=== PATIENT | female | born 1995 | race Caucasian/White ===

== ENCOUNTER 2019-10-26 20:10 | Day surgery (SDC) | payer BC ==
[~2019-10-26] VITALS: Ht 144.8 cm; Wt 53.6 kg
[~2019-10-26 20:10] MED LIST: BACT800T5 PO; DICL500C PO; IBUP-1114 PO; IBUP80TA PO; MAPA500T2 PO; PRENTAB31 PO; VITAPRTA PO
[2019-10-26] MEDS ORDERED: NS 1,000 ML IV ONE (21:15)
[2019-10-26] MEDS ORDERED: ACETAMINOPHEN TAB 650MG DOSE (2X325MG) PO ONE (21:15)
[2019-10-26 21:26] LABS: BASO % 0.2 % (0.0-1.0); HEMATOCRIT 26.9 % (36.0-47.0); HEMOGLOBIN 8.6 g/dl (12.0-15.5); LYMPH # 0.6 10^3/uL (1.5-5.0); LYMPH % 7.8 % (24.0-44.0); MEAN CORPUSCULAR HEMOGLOBIN 27.2 pg (27.0-33.0); MEAN CORPUSCULAR VOLUME 85.1 fl (80.0-96.0); MONO # 0.4 10^3/uL (0.0-0.8); MONO % 4.6 % (0.0-5.0); NEUTROPHILS # 7.1 10^3/uL (1.5-8.5); PLATELET COUNT, AUTOMATED 201 10^3/uL (150-450); RED BLOOD COUNT 3.16 10^6/uL (4.00-5.40); WHITE BLOOD COUNT 8.2 10^3/uL (4.0-10.0)
[2019-10-26 21:32] LABS: ALBUMIN 2.9 GM/DL (3.2-5.2); ALT/SGPT 12 U/L (12-78); BILIRUBIN,DIRECT 0.1 MG/DL (0.0-0.2); BILIRUBIN,TOTAL 0.3 MG/DL (0.2-1.0); BLOOD UREA NITROGEN 6 MG/DL (7-18); CALCIUM LEVEL 8.2 MG/DL (8.5-10.1); CARBON DIOXIDE LEVEL 21 MEQ/L (21-32); CHLORIDE LEVEL 105 MEQ/L (98-107); CREATININE FOR GFR 0.69 MG/DL (0.55-1.30); GLOMERULAR FILTRATION RATE > 60.0 (>60); GLUCOSE, FASTING 98 MG/DL (70-100); LIPASE 90 U/L (73-393); POTASSIUM SERUM 3.6 MEQ/L (3.5-5.1); SODIUM LEVEL 136 MEQ/L (136-145); TOTAL PROTEIN 6.2 GM/DL (6.4-8.2)
--- NOTE | 2019-10-26 21:47 | REP ---
Clinical: Chest and abdominal pain . Comparison: None . Technique: PA and lateral. Findings: The mediastinum and cardiac silhouette are normal. The lung jones are clear and without acute consolidation, effusion, or pneumothorax. The skeletal structures are intact and normal. Impression: 1. No acute cardiopulmonary process. Electronically Signed by Baljit Springer MD 10/26/2019 09:39 P
[2019-10-26 22:04] LABS: INFLUENZA A AMPLIFICATION NEGATIVE (NEGATIVE); INFLUENZA B AMPLIFICATION NEGATIVE (NEGATIVE)
--- NOTE | 2019-10-26 22:36 | REPVR ---
PROCEDURE INFORMATION: Exam: US Pelvis Complete, Transabdominal and US Pelvis, Transvaginal and US Duplex Artery and Vein, Ovaries, Complete Exam date and time: 10/26/2019 10:03 PM Age: 24 years old Clinical indication: Menstruation abnormalities; Excessive menstruation; Other: Miscarriage; Pelvic pain; Additional info: Febrile, recent miscarriage, eval for rpoc TECHNIQUE: Imaging protocol: Real-time transabdominal and transvaginal pelvic ultrasound (complete) with image documentation. Transvaginal imaging was used for better evaluation of the endometrium and adnexa. Real-time duplex ultrasound scan of the arterial and venous flow of the ovaries with B-mode, color Doppler flow and spectral waveform analysis. COMPARISON: US PELVIC NON-OB COMPLETE 10/11/2016 6:34 PM FINDINGS: Uterus/cervix: The uterus measures 10.9 x 5.4 x 8.7 cm transabdominally and 10.1 x 5.6 x 7.9 cm transvaginally. It is homogeneous in echotexture, without demonstrated lesion. The endometrium measures up to 2.7 cm transabdominally and 3.5 cm transvaginally. It is heterogeneous and with internal vascularity. No discrete gestational sac was identified. Right adnexa: The right ovary measures 3.6 x 2.1 x 1.9 cm transabdominally and 2.8 x 2.0 x 2.1 cm transvaginally. It contains small follicles and demonstrates normal internal arterial and venous flow. Peak systolic velocity 15.8 cm/s, end-diastolic velocity 6.1 cm/s, resistive index 0.61. Left adnexa: The left ovary measures 2.7 x 3.3 x 2.2 cm transabdominally and 3.1 x 2.3 x 3.4 cm transvaginally. It contains a complex cyst measuring 2.0 x 1.6 x 1.8 cm and demonstrates normal internal arterial and venous flow. Peak systolic velocity 19.3 cm/s, end diastolic velocity 9.2 cm/s, resistive index 0.52. Free fluid: No significant free fluid is demonstrated, nor is any extraovarian adnexal mass. Bladder: The urinary bladder measures 3.2 x 2.8 x 7.4 cm. IMPRESSION: 1. Endometrium thickened up to 3.5 cm, heterogeneous and with internal vascularity, suspicious for retained products of conception. 2. 2.0 cm complex left ovarian cyst. 3. Unremarkable right ovary. 4. Normal internal flow to both ovaries, without torsion. Electronically signed by: Chandler Amezcua On 10/26/2019 22:36:12 PM
[2019-10-26] MEDS ORDERED: PIPERACILLIN/TAZOBACTAM SOD 3.375 GM in D5W MINI-BAG PLUS 50 ML IV ONE (23:00)
[2019-10-26] MEDS ORDERED: ACET-897 PO (23:29)
[2019-10-26] MEDS ORDERED: FERR1TAB8 PO (23:29)
[2019-10-26] MEDS ORDERED: VITA100066 PO (23:29)
[2019-10-26] MEDS ORDERED: IBUPOTC PO (23:29)
[2019-10-27] VITALS (11 sets, daily range): BP systolic 79–98; BP diastolic 42–58
[2019-10-27] MEDS ORDERED: DOXYCYCLINE HYCLATE 100 MG/10 ML VIAL As Ordered ONE (00:45)
[2019-10-27] MEDS ORDERED: MIDAZOLAM INJ 2 MG/2 ML VIAL (J2250) As Ordered ONE (01:17)
[2019-10-27] MEDS ORDERED: propofoL 200 MG/20 ML VIAL As Ordered ONE (01:17)
[2019-10-27] MEDS ORDERED: dexameTHASONE 4 MG/ML 1ML VIAL (J1100) As Ordered ONE (01:17)
[2019-10-27] MEDS ORDERED: fentaNYL 100 MCG/2 ML INJECTION (J3010) As Ordered ONE (01:17)
[2019-10-27] MEDS ORDERED: ONDANSETRON 4MG/2ML VIAL (J2405) As Ordered ONE (01:17)
[2019-10-27] MEDS ORDERED: LIDOCAINE 2% INJ 100 MG/5 ML SDV (FOR ANES.) As Ordered ONE (01:17)
[2019-10-27] MEDS ORDERED: KETOROLAC 60 MG/2 ML VIAL (J1885) As Ordered ONE (01:18)
[2019-10-27] MEDS ORDERED: METHYLERGONOVINE MALEATE 0.2 MG/ML VIAL (J2210) As Ordered ONE (01:26)
[2019-10-27] MEDS ORDERED: LR 1,000 ML IV SCH ×2 (01:30→02:15)
[2019-10-27] MEDS ORDERED: HYDROMORPHONE HCL 0.5 MG/ 0.5 ML SYRINGE (J1170 PER 1) IV PRN (01:30)
[2019-10-27] MEDS ORDERED: ONDANSETRON 4MG/2ML VIAL (J2405) IV PRN (01:30)
[2019-10-27] MEDS ORDERED: KETOROLAC 30 MG/ML VIAL (J1885) IV PRN (01:30)
[2019-10-27] MEDS ORDERED: fentaNYL 100 MCG/2 ML INJECTION (J3010) IV PRN (01:30)
[2019-10-27] MEDS ORDERED: PERCOCET 5MG/325MG TAB PO PRN ×2 (01:30→03:15)
[2019-10-27] MEDS ORDERED: DOXYCYCLINE HYCLATE 100 MG TAB PO ONE (02:15)
[2019-10-27 02:16] LABS: HEMATOCRIT 24.4 % (36.0-47.0); HEMOGLOBIN 7.5 g/dl (12.0-15.5); MEAN CORPUSCULAR HEMOGLOBIN 26.6 pg (27.0-33.0); MEAN CORPUSCULAR HGB CONC 30.7 g/dl (32.0-36.5); MEAN CORPUSCULAR VOLUME 86.5 fl (80.0-96.0); PLATELET COUNT, AUTOMATED 164 10^3/uL (150-450); RED BLOOD COUNT 2.82 10^6/uL (4.00-5.40); WHITE BLOOD COUNT 8.7 10^3/uL (4.0-10.0)
[2019-10-27] MEDS ORDERED: ONDANSETRON 4 MG TAB (S0181) PO PRN (03:15)
[2019-10-27] MEDS ORDERED: PROMETHAZINE INJ 25 MG/ML VIAL (J2550) IV PRN (03:15)
[2019-10-27 10:20] LABS: HEMATOCRIT 30.9 % (36.0-47.0); HEMOGLOBIN 10.2 g/dl (12.0-15.5); MEAN CORPUSCULAR HEMOGLOBIN 28.5 pg (27.0-33.0); MEAN CORPUSCULAR VOLUME 86.3 fl (80.0-96.0); PLATELET COUNT, AUTOMATED 178 10^3/uL (150-450); RED BLOOD COUNT 3.58 10^6/uL (4.00-5.40)
[2019-10-28] MEDS ORDERED: IBUPROFEN 800 MG TAB PO SCH (09:30)
== END 2019-10-27 11:55 | disposition home or self-care (01) ==
LOC: M ED 20:10 → M SDC 20:11 → M PED 10-27 02:30 → M SDC 10-27 11:55
PROVIDERS: ATTEND Obstetrics & Gynecology
DX: O03.4 Incomplete spontaneous abortion without complication (principal); O73.1 Retained portions of placenta and membranes, without hemorrhage; R00.0 Tachycardia, unspecified; R50.9 Fever, unspecified; Z79.899 Other long term (current) drug therapy
CPT/HCPCS: 36415; 36430; 59812; 71046; 76830; 76856; 80047; 80048; 80076; 81001; 83605; 83690; 85025; 85027; 86850; 86900; 86901; 86920; 87040; 87088; 87186; 87502; 88305; 93041; 93976; 96361; 96365; 99285; J1100; J1885; J2210; J2250; J2405; J2543; J3010; P9016

== ENCOUNTER → 2021-11-13 | Outpatient (REF) | payer OTHER, BC ==
[~2021-11-13] MED LIST changes: +ACET-897 PO; +FERR1TAB8 PO; +IBUPOTC PO; +VITA100066 PO
== END ==
LOC: M SFHCWAGY 13:09
PROVIDERS: ATTEND Obstetrics & Gynecology
DX: R87.610 Atypical squamous cells of undetermined significance on cytologic smear of cervix (ASC-US) (principal); Z12.4 Encounter for screening for malignant neoplasm of cervix

== ENCOUNTER → 2025-06-22 | Outpatient (REF) | payer OTHER | LOC: M PLALAB 09:28 | PROVIDERS: ATTEND Obstetrics & Gynecology | DX: Z01.419 Encounter for gynecological examination (general) (routine) without abnormal findings (principal); Z53.9 Procedure and treatment not carried out, unspecified reason ==